=== PATIENT | female | born 1945 | race Caucasian/White ===

== ENCOUNTER → 2019-01-05 | Day surgery (SDC) | payer MEDICARE ==
[~2019-01-05] VITALS: Ht 162.5 cm; Wt 87.5 kg
[~2019-01-05] MED LIST: ASPIRIN CHEWABL81 MG PO; B COMPLEX1 EACH PO; CO Q10100 MG PO; CRESTOR20 M1 PO; LISINOPRIL20 MG PO; LOPRESSOR50 M1 PO; MAG DELAY64 MG PO; MAGNESIUM GLUCONATE PO; METFORMIN HYDR500 MG PO; NORVASC5 MG PO; OMEGA 3 1,0001 EACH PO; SYNTHROID,LEV112 MCG PO; VITAMIN D22000 UNIT PO
[2019-01-05 09:22] VITALS: BP 134/49
[2019-01-05 11:16] VITALS: BP 128/51
[2019-01-05 11:31] VITALS: BP 135/59
[2019-01-05 11:46] VITALS: BP 103/76
== END | disposition home or self-care (01) ==
LOC: SDC 01-02 15:30
DX: Z12.11 Encounter for screening for malignant neoplasm of colon (principal); K57.30 Diverticulosis of large intestine without perforation or abscess without bleeding; I10 Essential (primary) hypertension; E11.9 Type 2 diabetes mellitus without complications; J45.909 Unspecified asthma, uncomplicated; F17.210 Nicotine dependence, cigarettes, uncomplicated; E66.01 Morbid (severe) obesity due to excess calories; Z68.42 Body mass index [BMI] 45.0-49.9, adult; Z98.890 Other specified postprocedural states; Z79.899 Other long term (current) drug therapy; Z79.4 Long term (current) use of insulin; Z86.010 Personal history of colon polyps
CPT/HCPCS: 00812; G0105